=== PATIENT | female | born 1980 | race Caucasian/White ===

== ENCOUNTER 2017-08-24 18:15 | Emergency (ER) | payer SELFPAY ==
[~2017-08-24] VITALS: Ht 160 cm; Wt 68.0 kg
--- OUTSIDE RECORDS SUMMARY | 2017-08-24 18:21 | XMS REPORT | Continuity of Care Document ---
Author Author [facility] Address Unknown Phone Unavailable Allergies There is no data. Medications There is no data. Problems Date Dx Coded Attending Type Code Diagnosis Diagnosed By 03/28/2010 AIDE NOYOLA MD 706.1 OTHER ACNE 03/28/2010 AIDE NOYOLA MD V72.31 EQUIPMENT MAN EXAM, ROUTINE 03/28/2010 706.1 OTHER ACNE 03/28/2010 V72.31 EQUIPMENT MAN EXAM, ROUTINE 03/28/2010 BOBBY BARRIGA APRN 706.1 OTHER ACNE 03/28/2010 BOBBY BARRIGA APRN V72.31 EQUIPMENT MAN EXAM, ROUTINE 03/28/2010 BOBBY BARRIGA APRN 706.1 OTHER ACNE 03/28/2010 BOBBY BARRIGA APRN V72.31 EQUIPMENT MAN EXAM, ROUTINE 01/16/2011 AIDE NOYOLA MD 682.9 CELLULITIS AND ABSCESS OF UNSPECIFIED SITES 01/16/2011 AIDE NOYOLA MD 704.8 OTHER SPECIFIED DISEASES OF HAIR AND HAIR FOLLICLES 01/16/2011 682.9 CELLULITIS AND ABSCESS OF UNSPECIFIED SITES 01/16/2011 704.8 OTHER SPECIFIED DISEASES OF HAIR AND HAIR FOLLICLES 01/16/2011 BOBBY BARRIGA APRN A 682.9 CELLULITIS AND ABSCESS OF UNSPECIFIED SITES 01/16/2011 BOBBY BARRIGA APRN A 704.8 OTHER SPECIFIED DISEASES OF HAIR AND HAIR FOLLICLES 01/16/2011 BOBBY BARRIGA APRN 682.9 CELLULITIS AND ABSCESS OF UNSPECIFIED SITES 01/16/2011 BOBBY BARRIGA APRN 704.8 OTHER SPECIFIED DISEASES OF HAIR AND HAIR FOLLICLES 03/18/2011 AIDE NOYOLA MD 477.9 RHINITIS 03/18/2011 AIDE NOYOLA MD 786.2 cough 03/18/2011 AIDE NOYOLA MD V15.09 PERSONAL HISTORY OF OTHER ALLERGY OTHER THAN TO MEDICINAL AGENTS 03/18/2011 477.9 RHINITIS 03/18/2011 786.2 cough 03/18/2011 V15.09 PERSONAL HISTORY OF OTHER ALLERGY OTHER THAN TO MEDICINAL AGENTS 03/18/2011 YRN BARRIGA APRNIDI A 477.9 RHINITIS 03/18/2011 YRN BARRIGA APRNIDI A 786.2 cough 03/18/2011 YRN BARRIGA APRNIDI A V15.09 PERSONAL HISTORY OF OTHER ALLERGY OTHER THAN TO MEDICINAL AGENTS 03/18/2011 LINUS LINARESNYRNBOBBY A 477.9 RHINITIS 03/18/2011 YRN BARRIGA APRNIDI A 786.2 cough 03/18/2011 YRN BARRIGA APRNIDI A V15.09 PERSONAL HISTORY OF OTHER ALLERGY OTHER THAN TO MEDICINAL AGENTS 10/09/2011 AIDE NOYOLA MD V65.42 COUNSELING - SMOKING CESSATION 10/09/2011 AIDE NOYOLA MD V72.62 LAB SCREENING- GENERAL PHYSICAL 10/09/2011 AIDE NOYOLA MD V76.2 CERVICAL CANCER SCREENING (PAP SMEAR) 10/09/2011 AIDE NOYOLA MD V77.0 THYROID DISORDER SCREENING 10/09/2011 V65.42 COUNSELING - SMOKING CESSATION 10/09/2011 V72.62 LAB SCREENING - GENERAL PHYSICAL 10/09/2011 V76.2 CERVICAL CANCER SCREENING (PAP SMEAR) 10/09/2011 V77.0 THYROID DISORDER SCREENING 10/09/2011 BOBBY BARRIGA APRN V65.42 COUNSELING - SMOKING CESSATION 10/09/2011 BOBBY BARRIGA APRN V72.62 LAB SCREENING- GENERAL PHYSICAL 10/09/2011 BOBBY BARRIGA APRN V76.2 CERVICAL CANCER SCREENING (PAP SMEAR) 10/09/2011 BOBBY BARRIGA APRN V77.0 THYROID DISORDER SCREENING 10/09/2011 BOBBY BARRIGA APRN V65.42 COUNSELING - SMOKING CESSATION 10/09/2011 BOBBY BARRIGA APRN V72.62 LAB SCREENING- GENERAL PHYSICAL 10/09/2011 LINUSBOBBY NAJERA APRN V76.2 CERVICAL CANCER SCREENING (PAP SMEAR) 10/09/2011 BOBBY BARRIGA APRN V77.0 THYROID DISORDER SCREENING 12/18/2011 AIDE NOYOLA MD 466.0 BRONCHITIS, ACUTE 12/18/2011 466.0 BRONCHITIS, ACUTE 12/18/2011 YRN BARRIGA APRNIDI A 466.0 BRONCHITIS, ACUTE 12/18/2011 YRN BARRIGA APRNIDI A 466.0 BRONCHITIS, ACUTE 05/04/2012 AIDE NOYOLA MD 305.1 NICOTINE DEPENDENCE 05/04/2012 AIDE NOYOLA MD 465.9 UPPER RESPIRATORY INFECTION 05/04/2012 305.1 NICOTINE DEPENDENCE 05/04/2012 465.9 UPPER RESPIRATORY INFECTION 05/04/2012 LINUS WEED COOKING OPERATOR, BOBBY A 305.1 NICOTINE DEPENDENCE 05/04/2012 LINUS LINARESVentura BOBBY A 465.9 UPPER RESPIRATORY INFECTION 05/04/2012 LINUS LINARESVentura BOBBY A 305.1 NICOTINE DEPENDENCE 05/04/2012 LINUS JEAN BOBBY A 465.9 UPPER RESPIRATORY INFECTION 12/28/2013 LINUS WEED COOKING OPERATOR, BOBBY A V25.09 CONTRACEPTIVE COUNSELING - GENERAL 12/28/2013 LINUS WEED COOKING OPERATOR, BOBBY A V25.09 CONTRACEPTIVE COUNSELING - GENERAL 09/28/2014 LINUS WEED COOKING OPERATOR, BOBBY A V74.5 SCREENING EXAMINATION FOR VENEREAL DISEASE Procedures Code Description [place] [address] OXIMETRY 05/04/2012 42948 TEST, URINE (IN- HOUSE) 12/28/2013 73181 GC/CHLAM URINE (STATE) 09/28/2014 Results There is no data. Encounters ACCT No. Visit Date/Time Discharge Status Pt. Type Provider Facility Loc./Unit Complaint [id number] 09/28/2014 09:24:00 09/28/2014 23:59:59 CLS Outpatient LINUSBOBBY Whitehead APRN [id number] 12/28/2013 09:29:00 12/28/2013 23:59:59 CLS Outpatient LINUS TED BOBBY A [id number] 05/04/2012 08:59:00 05/04/2012 23:59:59 CLS Outpatient AIDE NOYOLA MD [id number] 10/14/2012 12:51:00 Document Registration
--- NOTE | 2017-08-24 18:39 | ED Upper Extremity ---
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 NO OTHER INJURIES OR AREAS OF PAIN PCP: [facility] Constitutional: no symptoms reported Musculoskeletal: see HPI Skin: no symptoms reported Psychiatric/Neurological: See HPI Past Fkxzsak-Rbhgoc-Extwoj Hx Patient Social History Alcohol Use: Occasionally Uses Alcohol Beverage of Choice: Beer Recreational Drug Use: Yes (HX OF DRUG ADDICTION) Smoking Status: Current Everyday Smoker Type Used: Cigarettes 2nd Hand Smoke Exposure: Yes Recent Foreign Travel: No Contact w/Someone Who Travel: No Recent Hopitalizations: No Seasonal Allergies Seasonal Allergies: No Surgeries History of Surgeries: No Respiratory History of Respiratory Disorde: No Cardiovascular History of Cardiac Disorders: No Neurological History of Neurological Disord: No Reproductive System Hx Reproductive Disorders: No Genitourinary History of Genitourinary Disor: No Gastrointestinal History of Gastrointestinal Di: No Musculoskeletal History of Musculoskeletal Dis: Yes (LEFT WRIST FX--NO SURGERY) Musculoskeletal Disorders: Fractures Endocrine History of Endocrine Disorders: No HEENT History of HEENT Disorders: No Cancer History of Cancer: No Psychosocial History of Psychiatric Problem: No Integumentary History of Skin or Integumenta: No Blood Transfusions History of Blood Disorders: No Physical Exam Vital Signs Vital Signs - First Documented 08/24/17 18:30 Temp 97.4 Pulse 85 Resp 16 B/P (MAP) 134/83 (100) Pulse Ox 99 O2 Delivery Room Air Capillary Refill : General Appearance: WD/WN, no apparent distress Shoulder: normal inspection, non-tender, no evidence of injury, normal ROM Elbow/Forearm: normal inspection, non-tender, no evidence of injury, normal ROM Wrist: Yes bone tenderness (BILATERAL WRISTS), Yes limited ROM (BILATERAL WRISTS), Yes soft tissue tenderness, Yes swelling (SLIGHT) Hand: Bilateral, limited ROM (DUE TO WRIST PAIN) Neurologic/Tendon: normal sensation, normal motor functions, normal tendon functions Neurologic/Psychiatric: anger control counselor II-XII nml as tested, no motor/sensory deficits, alert, normal mood/affect, oriented x 3 Skin: other (ALL FINGERS DUSKY WITH DECREASED CAPILLARY REFILL--ALL DISTAL TO VERY TIGHT WALE WRAPS. IMPROVED COLOR AND CAPILLARY REFILL WITH REMOVAL OF WALE WRAPS) Progress/Results/Core Measures Results/Orders My Orders Orders - JORGE A HOBBS DO Wrist,Bilat,3 Views Or More (08/24/17 18:33) Vital Signs/I&O Vital Sign - Last 12Hours 08/24/17 18:30 Temp 97.4 Pulse 85 Resp 16 B/P (MAP) 134/83 (100) Pulse Ox 99 O2 Delivery Room Air Diagnostic Imaging Comments BILATERAL WRIST XRAYS--NO FRACTURES OR BONY INJURY--PER RADIOLOGIST REPORT @ 1910 Reviewed: Reviewed by Me Departure Impression Impression: Primary Impression: Strain of both wrists Disposition: 01 HOME, SELF-CARE Condition: Stable Departure-Patient Inst. Referrals: [facility] (PCP) Primary Care Physician Patient Instructions: Common Wrist Injuries (DC), Wrist Sprain (DC) Add. Discharge Instructions: ICE TO SORE AREAS AT 20 MINUTE INTERVALS WEAR SPLINTS NEEDED FOR PAIN ELEVATE HANDS MUCH POSSIBLE TYLENOL AND MOTRIN NEEDED FOR PAIN FOLLOW UP WITH [facility] IN 1 WEEK IF NO BETTER All discharge instructions reviewed with patient and/or family. Voiced understanding. Images Extremities-Upper 1 - Mild, Swelling, Tenderness 1 - Mild, Swelling, Tenderness 1 - Mild, Swelling, Tenderness 2 - Mild, Swelling, Tenderness JORGE A HOBBS DO Aug 24, 2017 18:39
--- NOTE | 2017-08-24 19:06 | Diagnostic Imaging Report ---
EXAMINATION: Left wrist, 3 views. Right wrist, 3 views. COMPARISON: None. HISTORY: 36-year-old female, fall. Bilateral wrist pain. FINDINGS: There is no identified acute fracture or dislocation on either side. There is no radiopaque foreign body. Bone mineralization and alignment is unremarkable. The joint spaces are well-preserved. IMPRESSION: 1. Unremarkable radiographs of the right and left wrists. Dictated by: Dictated on workstation # [id number]
[2017-08-24 19:22] VITALS: BP 134/83
== END 2017-08-24 19:21 | disposition home or self-care (01) ==
LOC: EDUNIT# 18:15 → ER 18:17
DX: S66.911A Strain of unspecified muscle, fascia and tendon at wrist and hand level, right hand, initial encounter (principal); S66.912A Strain of unspecified muscle, fascia and tendon at wrist and hand level, left hand, initial encounter; F17.210 Nicotine dependence, cigarettes, uncomplicated; Z87.81 Personal history of (healed) traumatic fracture; V00.131A Fall from skateboard, initial encounter

== ENCOUNTER 2018-12-18 00:35 | Emergency (ER) | payer OTHER ==
[~2018-12-18] VITALS: Ht 160 cm; Wt 68.0 kg
--- OUTSIDE RECORDS SUMMARY | 2018-12-18 00:42 | XMS REPORT ---
Author Author Migration, Doctor Organization [facility] Address Unknown Phone Unavailable Care Team Providers Care Brick Offbearer Name Role Phone Migration, Doctor Unavailable Unavailable PROBLEMS Type Condition ICD9-CM Code [id number] Code Onset Dates Condition Status SNOMED Code Problem Other general counseling and advice for contraceptive management V25.09 Active 579425815 Problem Nondependent tobacco use disorder 305.1 Active 009304005 Problem Screening for thyroid disorder V77.0 Active 933252912 Problem Screening for malignant neoplasm of the cervix V76.2 Active 477071407 Problem Counseling on substance use and abuse V65.42 Active 321168204 ALLERGIES No Information ENCOUNTERS Encounter Location Date Diagnosis [facility] [address] [address] Jul, Acute bronchitis, unspecified organism J20.9 [facility] [id number] [place] [address] Jul, Injury of right wrist, initial encounter S69.91XA and Injury of left wrist, initial encounter S69.92XA [facility] [id number] [place] [address] Jan, Knee injury, right, initial encounter S89.91XA and Right knee sprain S83.91XA [facility] [address] [address] Sep, Routine gynecological examination V72.31 ; Encounter for IUD removal and reinsertion V25.13 ; Cervical cancer screening V76.2 ; Screening for HPV (human papillomavirus) V73.81 and Encounter for smoking cessation counseling V65.42 [facility] [id number] [place] [address] Sep, [place] [address] [address] Dec, [facility] [place] [facility] [address] [id number] [place] [address] Dec, [facility] [place] [facility] [address] [id number] [place] [address] Sep, [facility] [place] [facility] [address] [id number] [place] [address] Apr, [facility] [place] [facility] [address] [id number] [place] [address] Apr, [facility] [place] [facility] [address] [id number] [place] [address] Apr, [facility] [place] [facility] [address] [id number] [place] [address] Apr, [facility] [place] [facility] [address] [id number] [place] [address] Nov, [facility] [place] [facility] [address] [id number] [place] [address] 18 Sep, 2011 [facility] [place] [facility] [address] [id number] [place] [address] 16 Sep, 2011 [facility] [place] [facility] [address] [id number] [place] [address] 13 Sep, 2011 [facility] [place] [facility] [address] [id number], [place] [address] 13 Sep, 2011 [facility] [place] [facility] [address] [id number], [place] [address] 12 Sep, 2011 [facility] [place] [facility] [address] [id number] [place] [address] Sep, [facility] [place] [facility] [address] [id number], [place] [address] 13 Mar, 2010 [facility] [place] [facility] [address] [id number], [place] [address] 13 Mar, 2010 [facility] [place] [facility] [address] [facility] [id number] [place] [address] Mar, IMMUNIZATIONS No Known Immunizations SOCIAL HISTORY Never Assessed REASON FOR VISIT EMR-[facility] PLAN OF CARE VITAL SIGNS MEDICATIONS No Known Medications RESULTS No Results PROCEDURES No Known procedures INSTRUCTIONS MEDICATIONS ADMINISTERED No Known Medications MEDICAL (GENERAL) HISTORY Type Description Date Surgical History dental surgery as a child
--- OUTSIDE RECORDS SUMMARY | 2018-12-18 00:42 | XMS REPORT | Continuity of Care Document ---
Author Organization Unknown Address Unknown Allergies There is no data. Medications There is no data. Problems Date Dx Coded Attending Type Code Diagnosis Diagnosed By 03/28/2010 AIDE NOYOLA MD 706.1 OTHER ACNE 03/28/2010 AIDE NOYOLA MD V72.31 SEWING TEACHER EXAM, ROUTINE 03/28/2010 706.1 OTHER ACNE 03/28/2010 V72.31 SEWING TEACHER EXAM, ROUTINE 03/28/2010 BOBBY BARRIGA APRN 706.1 OTHER ACNE 03/28/2010 BOBBY BARRIGA APRN V72.31 SEWING TEACHER EXAM, ROUTINE 03/28/2010 BOBBY BARRIGA APRN 706.1 OTHER ACNE 03/28/2010 BOBBY BARRIGA APRN V72.31 SEWING TEACHER EXAM, ROUTINE 01/16/2011 AIDE NOYOLA MD 682.9 [...] COUNSELING - SMOKING CESSATION 10/09/2011 V72.62 LAB SCREENING- GENERAL PHYSICAL 10/09/2011 V76.2 CERVICAL CANCER SCREENING (PAP SMEAR) 10/09/2011 V77.0 THYROID DISORDER SCREENING 10/09/2011 BOBBY BARRIGA APRN V65.42 COUNSELING - SMOKING CESSATION 10/09/2011 BOBBY BARRIGA APRN V72.62 LAB SCREENING- GENERAL PHYSICAL 10/09/2011 LINUSBOBBY NAJERA APRN V76.2 CERVICAL CANCER SCREENING (PAP SMEAR) 10/09/2011 LINUSBOBBY NAJERA APRN A V77.0 THYROID DISORDER SCREENING 10/09/2011 LINUS BARREL BUNG REMOVER AND DUMPERBOBBY Whitehead A V65.42 COUNSELING - SMOKING CESSATION 10/09/2011 LINUSBOBBY NAJERA APRN V72.62 LAB SCREENING- GENERAL PHYSICAL 10/09/2011 LINUS BARREL BUNG REMOVER AND DUMPERBOBBY Whitehead A V76.2 CERVICAL CANCER SCREENING (PAP SMEAR) 10/09/2011 LINUSBOBBY NAJERA APRN A V77.0 THYROID DISORDER SCREENING 12/18/2011 AIDE NOYOLA MD 466.0 BRONCHITIS, ACUTE 12/18/2011 466.0 BRONCHITIS, ACUTE 12/18/2011 LINUS LINARESN, BOBBY A 466.0 BRONCHITIS, ACUTE 12/18/2011 LINUS BARREL BUNG REMOVER AND DUMPER, BOBBY A 466.0 BRONCHITIS, ACUTE 05/04/2012 AIDE NOYOLA MD 305.1 NICOTINE DEPENDENCE 05/04/2012 AIDE NOYOLA MD 465.9 UPPER RESPIRATORY INFECTION 05/04/2012 305.1 NICOTINE DEPENDENCE 05/04/2012 465.9 UPPER RESPIRATORY INFECTION 05/04/2012 LINUS BARREL BUNG REMOVER AND DUMPER, BBOBY A 305.1 NICOTINE DEPENDENCE 05/04/2012 LINUS BARREL BUNG REMOVER AND DUMPER, BOBBY A 465.9 UPPER RESPIRATORY INFECTION 05/04/2012 LINUS BARREL BUNG REMOVER AND DUMPER, BOBBY A 305.1 NICOTINE DEPENDENCE 05/04/2012 LINUS BARREL BUNG REMOVER AND DUMPER, BOBBY A 465.9 UPPER RESPIRATORY INFECTION 12/28/2013 LINUS BARREL BUNG REMOVER AND DUMPER, BOBBY A V25.09 CONTRACEPTIVE COUNSELING - GENERAL 12/28/2013 LINUS LINARESN, BOBBY A V25.09 CONTRACEPTIVE COUNSELING - GENERAL 09/28/2014 LINUS LINARESN, BOBBY A V74.5 SCREENING EXAMINATION FOR VENEREAL DISEASE 08/24/2017 JORGE A HOBBS DO Ot F17.210 NICOTINE DEPENDENCE, CIGARETTES, UNCOMPL 08/24/2017 JORGE A HOBBS DO, Ot M25.531 PAIN IN RIGHT WRIST 08/24/2017 JORGE A HOBBS DO, Ot S66.911A [facility] 08/24/2017 ANJEL JORGE A MARSHALL Ot S66.912A [facility] 08/24/2017 JORGE A HOBBS DO Ot V00.131A FALL FROM SKATEBOARD, INITIAL ENCOUNTER 08/24/2017 JORGE A HOBBS DO, Ot Z87.81 PERSONAL HISTORY OF (HEALED) TRAUMATIC F 04/30/2018 JORGE A OHBBS DO, Ot F17.210 NICOTINE DEPENDENCE, CIGARETTES, UNCOMPL 04/30/2018 JORGE A HOBBS DO, Ot M25.531 PAIN IN RIGHT WRIST 04/30/2018 JORGE A HOBBS DO Ot S66.911A STRAIN OF UNSP [facility]/TEND AT [facility] 04/30/2018 JORGE A HOBBS DO, Ot S66.912A STRAIN OF UNSP MUSC/FASC/TEND AT [facility]/HND 04/30/2018 JORGE A HOBBS DO Ot V00.131A FALL FROM SKATEBOARD, INITIAL ENCOUNTER 04/30/2018 JORGE A HOBBS DO Ot Z87.81 PERSONAL HISTORY OF (HEALED) TRAUMATIC F Procedures Code Description [place] [address] OXIMETRY 05/04/2012 08246 TEST, URINE (IN-HOUSE) 12/28/2013 52142 GC/CHLAM URINE (STATE) 09/28/2014 Results There is no data. Encounters ACCT No. Visit Date/Time Discharge Status Pt. Type Provider Facility Loc./Unit Complaint [id number] 09/28/2014 09:24:00 09/28/2014 23:59:59 CLS Outpatient BOBBY BARRIGA APRN [id number] 12/28/2013 09:29:00 12/28/2013 23:59:59 CLS Outpatient BOBBY BARRIGA APRN [id number] 05/04/2012 08:59:00 05/04/2012 23:59:59 CLS Outpatient AIDE NOOYLA MD [id number] 10/14/2012 12:51:00 Document Registration [id number] 07/30/2018 17:05:00 07/30/2018 23:59:59 CLS Outpatient ROSSY RENDON DO [facility] [id number] 08/24/2017 18:17:00 08/24/2017 19:21:00 DIS Outpatient JORGE A HOBBS DO [facility] WRIST INJ;LEFT AND RIGHT
--- OUTSIDE RECORDS SUMMARY | 2018-12-18 00:42 | XMS REPORT ---
Author Author NIMESH MENA [facility] Address [address] [place] [address] Care Team Providers Care Back Stayer Name Role Phone NIMESH MENA Unavailable PROBLEMS Type Condition ICD9-CM Code [id number] Code Onset Dates Condition Status SNOMED Code Problem Nondependent tobacco use disorder 305.1 Active 368397461 Problem Other general counseling and advice for contraceptive management V25.09 Active 142513455 Problem Screening for thyroid disorder V77.0 Active 041006232 Problem Counseling on substance use and abuse V65.42 Active 244630953 Problem Screening for malignant neoplasm of the cervix V76.2 Active 010676392 ALLERGIES No Known Allergies ENCOUNTERS Encounter Location Date Diagnosis [facility] [address] [address] Jul, Injury of right wrist, initial encounter S69.91XA and Injury of left wrist, initial encounter S69.92XA [facility] [id number] [place] [address] Jan, Knee injury, right, initial encounter S89.91XA and Right knee sprain S83.91XA [place] [id number] [place] [address] Sep, Routine gynecological examination V72.31 ; Encounter for IUD removal and reinsertion V25.13 ; Cervical cancer screening V76.2 ; Screening for HPV (human papillomavirus) V73.81 and Encounter for smoking cessation counseling V65.42 [facility] [id number] [place] [address] Sep, [facility] [address] [address] Dec, [facility] [place] [facility] [address] [id number] [place] [address] Dec, [facility] [place] [facility] [address] [id number] [place] [address] 18 Sep, 2012 [facility] [place] [facility] [address] [id number] [place] [address] Apr, [facility] [place] [facility] [address] [id number] [place] [address] Apr, [facility] [place] [facility] [address] [id number] [place] [address] Apr, [facility] [place] [facility] [address] [id number] [place] [address] Apr, [facility] [place] [facility] [address] [id number] [place] [address] Nov, [facility] [place] [facility] [address] [id number] [place] [address] 18 Sep, 2011 [facility] [place] [facility] [address] [id number] [place] [address] 16 Sep, 2011 [facility] [place] [facility] [address] [id number] [place] [address] 13 Sep, 2011 [facility] [place] [facility] [address] [id number] [place] [address] 13 Sep, 2011 [facility] [place] [facility] [address] [id number] [place] [address] 12 Sep, 2011 [facility] [place] [facility] [address] [id number] [place] [address] 12 Sep, 2011 [facility] [place] [facility] [address] [id number] [place] [address] 13 Mar, 2010 [facility] [place] [facility] [address] [id number] [place] [address] 13 Mar, 2010 [facility] [place] [facility] [address] [id number] [place] [address] Mar, IMMUNIZATIONS No Known Immunizations SOCIAL HISTORY Never Assessed REASON FOR VISIT wrist pain- fell [place] skating rink this afternoon [employer] PLAN OF CARE Activity Details Follow Up prn Reason:follow up prn xray results VITAL SIGNS Height 64.5 in 2017-08-22 Weight 153.0 lbs 2017-08-22 Temperature 99.0 degrees Fahrenheit 2017-08-22 Heart Rate 84 bpm 2017-08-22 Respiratory Rate 18 2017-08-22 BMI 25.85 kg/m2 2017-08-22 Blood pressure systolic 140 mmHg 2017-08-22 Blood pressure diastolic 90 mmHg 2017-08-22 MEDICATIONS Medication Instructions Dosage Frequency Start Date End Date Duration Status PredniSONE 20 MG Orally Once a day 3 tablet 24h Jul, Aug, 5 day(s) Active RESULTS No Results PROCEDURES No Known procedures INSTRUCTIONS MEDICATIONS ADMINISTERED No Known Medications MEDICAL (GENERAL) HISTORY Type Description Date Surgical History dental surgery as a child
--- OUTSIDE RECORDS SUMMARY | 2018-12-18 00:42 | XMS REPORT ---
Author Author [facility] Address [address] [place] [address] Care Team Providers Care Regulatory Analyst Name Role Phone lucianoMARISARIO SWANSON Unavailable PROBLEMS Type Condition ICD9-CM Code BMD65-JI Code Onset Dates Condition Status SNOMED Code Problem Nondependent tobacco use disorder 305.1 Active 695993570 Problem Other general counseling and advice for contraceptive management V25.09 Active 386017092 Problem Screening for thyroid disorder V77.0 Active 034071222 Problem Counseling on substance use and abuse V65.42 Active 840475324 Problem Screening for malignant neoplasm of the cervix V76.2 Active 206919330 ALLERGIES No Known Allergies ENCOUNTERS Encounter Location Date Diagnosis [facility] [id number] [place] [id number] Jul, Injury of right wrist, initial encounter S69.91XA and Injury of left wrist, initial encounter S69.92XA [facility] [id number] [place] [id number] Jan, Knee injury, right, initial encounter S89.91XA and Right knee sprain S83.91XA [facility] [id number] [place] [phone] Sep, Routine gynecological examination V72.31 ; Encounter for IUD removal and reinsertion V25.13 ; Cervical cancer screening V76.2 ; Screening for HPV (human papillomavirus) V73.81 and Encounter for smoking cessation counseling V65.42 [facility] [id number] [place] [phone] Sep, [facility] [id number] [place] [phone] Dec, [facility] [address] [id number] [place] [address] Dec, [facility] [place] [facility] [address] [id number] [place] [address] 18 Sep, 2012 [facility] [place] [facility] [address] [id number] [place] [address] Apr, [facility] [place] [facility] [address] [id number] [place] [address] Apr, [facility] [place] [facility] [address] [id number] [place] [address] Apr, [facility] [place] [facility] [address] [id number] [place] [address] Apr, [facility] [place] [facility] [address] [id number] [place] [address] Nov, [facility] [place] [facility] [address] [id number] [place] [address] 18 Sep, 2011 [facility] [place] [facility] [address] [id number] [place] [address] 16 Sep, 2011 [facility] [place] [facility] [address] [id number] [place] [address] Sep, [facility] [place] [facility] [address] [id number] [place] [address] 13 Sep, 2011 [facility] [place] [facility] [address] [id number] [place] [address] 12 Sep, 2011 [facility] [place] [facility] [address] [id number] [place] [address] 12 Sep, 2011 [facility] [place] [facility] [address] [id number] [place] [address] 13 Mar, 2010 [facility] [place] [facility] [address] [id number] [place] [address] 13 Mar, 2010 [facility] [place] [facility] [address] [id number] [address] Mar, IMMUNIZATIONS No Known Immunizations SOCIAL HISTORY Never Assessed REASON FOR VISIT Right knee pain, injured it yesterday. JOSHUA Hidalgo. PLAN OF CARE Activity Details Follow Up prn Reason: VITAL SIGNS Height 64.5 in 2017-01-30 Weight 138.4 lbs 2017-01-30 Temperature 98.4 degrees Fahrenheit 2017-01-30 Heart Rate 86 bpm 2017-01-30 Respiratory Rate 16 2017-01-30 BMI 23.39 kg/m2 2017-01-30 Blood pressure systolic 122 mmHg 2017-01-30 Blood pressure diastolic 78 mmHg 2017-01-30 MEDICATIONS No Known Medications RESULTS No Results PROCEDURES Procedure Date Ordered Result Body Site X-RAY EXAM OF KNEE, 3 Jan 30, 2017 INSTRUCTIONS MEDICATIONS ADMINISTERED No Known Medications MEDICAL (GENERAL) HISTORY Type Description Date Surgical History dental surgery as a child
--- NOTE | 2018-12-18 00:45 | NUR ---
pt refused tetanus shot.
[2018-12-18] MEDS ORDERED: NS IV 1000 ML 1,000 ML IV SCH (00:53)
[2018-12-18 00:56] LABS: HEMOGLOBIN 13.7 G/DL (11.5-16.0); MEAN PLATELET VOLUME 9.3 FL (7.4-10.4); RED CELL DISTRIBUTION WIDTH 13.6 % (10.0-14.5); WHITE BLOOD COUNT 12.6 10^3/uL (4.3-11.0)
[2018-12-18] MEDS ORDERED: fentaNYL INJECTION 100 MCG/2 ML AMP ONE (00:58)
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
--- NOTE | 2018-12-18 01:03 | NUR ---
ekg by me
[2018-12-18 01:14] LABS: ALANINE AMINOTRANSFERASE 19 U/L (0-55); ALBUMIN 4.1 GM/DL (3.2-4.5); ALKALINE PHOSPHATASE 79 U/L (40-136); BILIRUBIN,DIRECT < 0.1 MG/DL (0.0-0.3); BILIRUBIN,INDIRECT 0.1 MG/DL; BILIRUBIN,TOTAL 0.2 MG/DL (0.1-1.0); BUN/CREATININE RATIO 14; CARBON DIOXIDE 19 MMOL/L (21-32); CHLORIDE 109 MMOL/L (98-107); CREATININE SERUM 0.88 MG/DL (0.60-1.30); GFR ESTIMATED > 60; GLUCOSE 140 MG/DL (70-105); POTASSIUM 3.6 MMOL/L (3.6-5.0); SODIUM 142 MMOL/L (135-145); TOTAL PROTEIN 6.6 GM/DL (6.4-8.2)
[2018-12-18] MEDS ORDERED: fentaNYL INJECTION 100 MCG/2 ML AMP IVP ONE ×2 (01:15→02:00)
[2018-12-18] MEDS ORDERED: KETOROLAC 30 MG/ML VIAL IVP ONE (02:00)
[2018-12-18] MEDS ORDERED: NS 100 ML (IVPB) BAG IV ONE (02:15)
[2018-12-18] MEDS ORDERED: HOLD METFORMIN - RECEIVED CONTRAST 20 ML VIAL IV SCH (02:15)
[2018-12-18] MEDS ORDERED: IOHEXOL 350 MG/ML 100 ML (OMNIPAQUE 350) VIAL IV ONE (02:15)
[2018-12-18] MEDS ORDERED: ACHD5005 PO (02:47)
[2018-12-18] MEDS ORDERED: CYCL10TA9 PO (02:47)
[2018-12-18 03:00] VITALS: BP 133/76
[2018-12-18] MEDS ORDERED: HYDROcodone/APAP 5 MG/325 MG (LORTAB) TAB PO ONE (03:00)
[2018-12-18] MEDS ORDERED: RX-HYDROCODONE/APAP 5/325 MG #4 TAB PK PO PRN (03:00)
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
--- NOTE | 2018-12-18 06:19 | Diagnostic Imaging Report ---
EXAMINATION: Left elbow at 1:52 AM INDICATION: Injury, elbow pain Three views were obtained. There are no prior studies available for comparison. There is minimal buckling of the lateral cortex of the radial head. This finding may be a sequela of prior trauma as opposed to an acute abnormality as the posterior fat-pad of the elbow joint does not appear to be elevated. Even so, the possibility that there is an acute nondisplaced fracture in this area should still be considered. No other fracture or acute bony abnormality is appreciated. The elbow joint itself is fairly well-maintained. IMPRESSION: 1. There is slight buckling of the lateral cortex of the radial head. The age of this injury is indeterminate but may well be chronic in nature. Even so, clinical followup is recommended. 2. There is no acute bony abnormality appreciated otherwise. Dictated by: Dictated on workstation # [id number]
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
== END 2018-12-18 03:06 | disposition home or self-care (01) ==
LOC: EDUNIT# 00:35 → ER 00:39
DX: S43.102A Unspecified dislocation of left acromioclavicular joint, initial encounter (principal); S81.812A Laceration without foreign body, left lower leg, initial encounter; S20.91XA Abrasion of unspecified parts of thorax, initial encounter; S50.312A Abrasion of left elbow, initial encounter; F17.210 Nicotine dependence, cigarettes, uncomplicated; R40.2142 Coma scale, eyes open, spontaneous, at arrival to emergency department; R40.2252 Coma scale, best verbal response, oriented, at arrival to emergency department; R40.2362 Coma scale, best motor response, obeys commands, at arrival to emergency department; V49.49XA Driver injured in collision with other motor vehicles in traffic accident, initial encounter
CPT/HCPCS: 36415; 70450; 70486; 71045; 71260; 72125; 72131; 73030; 73080; 80048; 80076; 80320; 84703; 85027; 93005; 93041